=== PATIENT | male | born 1975 ===

== ENCOUNTER 2017-07-18 09:42 | Emergency (ER) | payer OTHER ==
[~2017-07-18] VITALS: Ht 188 cm; Wt 137.0 kg
[2017-07-18] MEDS ORDERED: AVAPRO300 MG (09:52)
== END 2017-07-18 14:19 | disposition home or self-care (01) ==
LOC: ER 09:42
DX: S83.8X2A Sprain of other specified parts of left knee, initial encounter (principal); W18.39XA Other fall on same level, initial encounter; Y93.89 Activity, other specified; Y92.098 Other place in other non-institutional residence as the place of occurrence of the external cause; Y99.8 Other external cause status